=== PATIENT | female | born 1940 | race Caucasian/White ===

== ENCOUNTER → 2021-05-22 | Outpatient (CLI) | payer OTHER, MEDICAID | LOC: M.RAD 13:00 | PROVIDERS: ATTEND Family Medicine | DX: M85.88 Other specified disorders of bone density and structure, other site (principal); M62.84 Sarcopenia ==

== ENCOUNTER → 2021-09-11 | Outpatient (CLI) | payer OTHER, MEDICAID ==
--- NOTE | 2021-09-11 16:47 | CARDNUC ---
[place] [address] CARDIAC NUCLEAR IMAGING REPORT Name: MAYA ALMEIDA GRAY Room: [facility]#: [id number] Admission: 09/11/21 Attend Phys: Rafal Evans, Discharge: Date of : 42 Date of Service: 09/11/21 1647 Report #: [id number] THIS REPORT FOR: cc: Mirza Salazar,Mirza Will,Rafal Collier MD [facility] ~ APPROVED REPORT Imaging Protocol: Stress Tc-99m/Rest Tc-99m 1 day Study performed: 09/11/2021 14:07:33 Indication: Chest pain Patient Location: Out-Patient Stress Nurse: Luisana Luna RN Ht: 5 ft 3 in Wt: 139 lbs BSA: 1.66 m2 BMI: 24.61 Medical History Medical History: COPD, Diabetes, HTN, Hyperlipidemia Medications: amlodipine, carvedilol, chlorthalidone, clonidine, furosemide, olmesartan, kcl, rosuvastatin Allergies: multiple Cardiac Risk Factors: Age, DM, FHX of CAD, HTN, Hyperlipidemia Exercise History: Indeterminate Meds Held (24 hrs): carvedilol Resting Data Rest SPECT myocardial perfusion imaging was performed in supine position 30 minutes following the intravenous injection of 10.5 mCi of Tc-99m Sestamibi. Time of rest injection: 13:05 The images were gated to evaluate regional wall motion and calculate left ventricular ejection fraction. Administration Route: IV Administration Site: Right AC Pharmacologic Stress Pharmacologic stress test was performed by injecting Regadenoson 0.4 mg IV push over 10-15 seconds immediately followed by the intravenous injection of 34.8 mCi of Tc-99m Sestamibi. Time of stress injection: 14:00 Administration Route: [place] [address] CARDIAC NUCLEAR IMAGING REPORT Name: MAYA ALMEIDA Room: [facility] JAZMIN Scott#: [id number] Admission: 09/11/21 Attend Phys: Rafal Evans, Discharge: Date of : 42 Date of Service: 09/11/21 1647 Report #: [id number] Administration Site: Right Heart Rate at time of stress injection: 72 bpm. Gated Stress SPECT was performed 45 minutes after stress injection. The images were gated to evaluate regional wall motion and calculate left ventricular ejection fraction. Stress Test Details Stress Test: Pharmacologic stress testing performed using 0.4 mg of regadenoson per 5 mL given IV over 10 seconds. Reason for pharmacologic stress test: physical limitation. 60 mg caffeine given for other. HR Max Heart Rate (APMHR): 141 bpm Resting HR: 66 bpm Target HR (85% APMHR): 119 bpm Max HR Achieved: 72 bpm % of APMHR: 51 Recovery HR: 72 bpm BP Resting BP: 136/68 mmHg Max BP: 126/52 mmHg Recovery BP: 136/57 mmHg ECG Resting ECG: Sinus Rhythm Stress ECG: Sinus Rhythm ST Change: None Arrhythmia: None Recovery ECG: Sinus Rhythm Recovery ST Change: None Recovery Arrhythmia: None Clinical The patient tolerated Lexiscan infusion without significant cardiac symptoms. She had mild abdominal pain for which she received caffeine. Stress ECG Conclusion The baseline twelve-lead EKG shows sinus rhythm without significant ST segment depression. EKGs obtained during and post Lexiscan infusion show sinus rhythm with no significant ST segment or T wave changes when compared to baseline. There were no stress-induced arrhythmias. Study Quality Study: Good Artifact: [place] [address] CARDIAC NUCLEAR IMAGING REPORT Name: JUAN PABLOCESAROSKAR GRAY Room: [facility]#: [id number] Admission: 09/11/21 Attend Phys: Rafal Evans, Discharge: Date of : 42 Date of Service: 09/11/21 1647 Report #: [id number] Study Data At rest, the left ventricular ejection fraction was 68%.. Post stress, the left ventricular ejection was 71%.. TID = 0.95. Perfusion Perfusion images obtained at rest and post Lexiscan stress show uniform uptake of the radioisotope throughout the myocardium without defect. There were no defects to suggest infarct or ischemia. Wall Motion Normal left ventricular wall motion. Nuclear Conclusion ECG Findings: negative for ischemia Clinical Findings: negative for ischemia Nuclear Findings: negative for ischemia Exercise Capacity: not assessed Left Ventricular Function: normal Risk Study: low Perfusion images show no defect to suggest infarct or ischemia. Left ventricular systolic function appears normal on gated studies. This is a low risk study. <Conclusion> The baseline twelve-lead EKG shows sinus rhythm without significant ST segment depression. EKGs obtained during and post Lexiscan infusion show sinus rhythm with no significant ST segment or T wave changes when compared to baseline. There were no stress-induced arrhythmias. <ELECTRONICALLY SIGNED> By: Rafal Evans MD, FACC 09/11/211646 [id number] Rafal Evans MD, FACC /INF
== END ==
LOC: M.NUC 07-23 14:59 → M.CRD 08-16 08:00 → M.NUC 08-16 08:00
PROVIDERS: ATTEND Internal Medicine Cardiovascular Disease
DX: R07.2 Precordial pain (principal)

== ENCOUNTER → 2021-09-26 | Outpatient (CLI) | payer OTHER, MEDICAID | LOC: M.ULTRA 11:00 | PROVIDERS: ATTEND Family Medicine | DX: R22.0 Localized swelling, mass and lump, head (principal) ==